=== PATIENT | female | born 1995 | race African-American/Black ===

== ENCOUNTER 2016-05-03 21:59 | Emergency (ER) | payer OTHER ==
[~2016-05-03] VITALS: Ht 165.1 cm; Wt 63.5 kg
[~2016-05-03 21:59] MED LIST: CEFU500T PO; CIPR500T4 PO; IBUP-1773 PO; METR500T PO; METR500T21 PO; NITR-65 PO; ONDA8TAB9 PO
--- NOTE | 2016-05-03 22:11 | ED Upper Extremity ---
General Chief Complaint: Laceration Stated Complaint: L HAND LAC Source: patient Exam Limitations: no limitations History of Present Illness Time seen by provider: 22:08 Initial Comments To ER with reports of a laceration to the palm of the left hand near the second MCP joint proximal to the joint itself. This occurred about 20 minutes ago at home while she was trying to lift open a window to get into her house that she had accidentally locked herself out. In doing so the glass broke and cut her hand. Tetanus is not up-to-date she states. She is right-hand dominant. Onset: just prior to arrival Severity: moderate Pain/Injury Location: left hand Allergies and Home Medications Allergies Coded Allergies: No Known Drug Allergies (Unverified , 10/16/15) Home Medications No Active Prescriptions or Reported Meds Constitutional: see HPI EENTM: see HPI Respiratory: no symptoms reported Cardiovascular: no symptoms reported Genitourinary: no symptoms reported Musculoskeletal: see HPI Skin: no symptoms reported Psychiatric/Neurological: No Symptoms Reported Past Nrmpupd-Uawaln-Kuyrsn Hx Patient Social History Alcohol Use: Denies Use Recreational Drug Use: No Smoking Status: Never a Smoker Recent Foreign Travel: No Contact w/Someone Who Travel: No Recent Hopitalizations: No Immunizations Up To Date Tetanus Booster (TDap): More than 5yrs PED Vaccines UTD: Yes Seasonal Allergies Seasonal Allergies: No Surgeries HX Surgeries: No Respiratory Hx Respiratory Disorders: No Cardiovascular Hx Cardiac Disorders: No Neurological Hx Neurological Disorders: No Reproductive System Hx Reproductive Disorders: Yes Sexually Transmitted Disease: No HIV/AIDS: No Female Reproductive Disorders: Ovarian Cyst 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 Physical Exam Vital Signs Vital Sign - Last 12Hours 05/03/16 22:06 Temp 96.5 Pulse 80 Resp 18 B/P (MAP) 118/94 Pulse Ox 99 O2 Delivery Room Air Capillary Refill : General Appearance: WD/WN, no apparent distress HEENT: PERRL/EOMI, normal ENT inspection Neck: non-tender, full range of motion Respiratory: no respiratory distress, no accessory muscle use Gastrointestinal: non tender, soft Hand: Left, laceration (there is a 0.5 cm laceration to the palm of the left hand with depth to the subcutaneous tissues. Given that this is over one of the flexion creases of the palm glue will not likely hold up so stitch will be placed.) Neurologic/Tendon: normal motor functions, normal tendon functions Neurologic/Psychiatric: alert, normal mood/affect, oriented x 3 Laceration Repair : Wound Location: Upper Extremities Wound Length (cm): 0.5 Wound's Depth, Shape: sub Q Wound Explored: clean Anesthesia: 1% Lidocaine Volume Anesthetic (ccs): 1 Suture: Prolene Suture Size: 5-0 Number of Sutures: 1 Layer Closure?: 1 Number Deep Layer Sutures: 0 Progress Area anesthetized with 2 percent lidocaine without epinephrine totaling 0.75 mL. Wound then scrubbed with chlorhexidine/saline solution then irrigated with 20 mL of the same. A simple a interrupted stitch size 5-0 Prolene was placed. Progress/Results/Core Measures Results/Orders My Orders Orders - RENNY QUINONES APRN Dipht,Pertuss(Acell),Tet Adult (Boostrix (05/03/16 22:15) Lidocaine 2% Injection 20 Ml (Xylocaine (05/03/16 22:15) Medications Given in ED Current Medications Medications Dose Ordered Sig/Juan Francisco Route Start Time Stop Time Status Last Admin Dose Admin Diphtheria/ Tetanus/Acell Pertussis 0.5 ml ONCE ONCE IM 05/03/16 22:15 05/03/16 22:16 DC 05/03/16 22:12 0.5 ML Vital Signs/I&O Vital Sign - Last 12Hours 05/03/16 22:06 Temp 96.5 Pulse 80 Resp 18 B/P (MAP) 118/94 Pulse Ox 99 O2 Delivery Room Air Departure Impression Impression: Primary Impression: Laceration of left hand Disposition: HOME, SELF-CARE Condition: Stable Departure-Patient Inst. Decision time for Depature: 22:10 Referrals: NO,LOCAL PHYSICIAN (PCP/Family) Primary Care Physician Patient Instructions: Laceration Repair With Stitches (DC) Add. Discharge Instructions: 1. Keep this clean dry and covered for 48 hours. After this you may let water run over it such as in the shower but do not soak this in water such as a dish sink, hot tub, bath tub or swimming pool until the stitches been removed 2. Return to the emergency room to have the stitches removed in 10 days 3. Return to ER before then for any sign of infection such as redness or swelling 4. Tylenol and Motrin for pain All discharge instructions reviewed with patient and/or family. Voiced understanding. Scripts No Active Prescriptions or Reported Meds RENNY QUINONES APRN May 03, 2016 22:11
[2016-05-03] MEDS ORDERED: LIDOCAINE 2% 20 ML (XYLOCAINE) VIAL INJ ONE (22:15)
[2016-05-03] MEDS ORDERED: TETANUS,DIPTH,PERTUSS P/F (BOOSTRIX) 0.5 ML VIAL IM ONE (22:15)
[2016-05-03 22:24] VITALS: BP 118/94
--- OUTSIDE RECORDS SUMMARY | 2016-05-07 05:21 | XMS REPORT | Referral Summary ---
Author Author [facility], [facility], Family Medicine Organization [facility], [facility] Family [facility] Address Unknown Phone Unavailable Care Team Providers Care Foot Press Operator Name Role Phone Dinorah Majano PCP Encounter [facility] [id number] Date(s): 03/12/15 - 03/12/15 [facility], [facility], Family Medicine [address] [place] [phone] [place] Discharge Diagnosis: Encounter for counseling regarding contraception Discharge Diagnosis: Left otitis media Discharge Disposition: 01-Home or Self Care Attending Physician: Dinorah Majano DO Admitting Physician: Dinorah Majano DO Vital Signs Most recent to 1 oldest [Reference Range]: Temperature Oral 37 degC [35.8-37.3 degC] (03/12/15 8:52 AM) Apical Heart Rate 76 bpm [60-100 bpm] (03/12/15 8:52 AM) Blood Pressure 134/80 mmHg [90-140/60-90 mmHg] (03/12/15 8:52 AM) SpO2 99 % (03/12/15 8:52 AM) Problem List No Known Problems Allergies, Adverse Reactions, Alerts No Known Allergies Medications No data available for this section Results No data available for this section Immunizations No data available for this section Procedures Procedure Date Related Diagnosis Body Site None Social History Social History Type Response Smoking Status Never smoker Assessment and Plan Extracted from: Title: OV: AOM, contraception Author: Dinorah Majano DO Date: 03/12/15 Assessment/Plan 1.Left otitis media probably viral. Pain control w/ OTC meds Flonase/Nasacort and Sudafed scheduled. Call next week if not improved at all. Ordered: Office Visit Level 3 Est 74769 Return to Clinic 2.Encounter for counseling regarding contraception Will schedule Yesy during her next period. If she has a new sexual partner before IUD placed, will need to recreen for GC /chlam. Ordered: Office Visit Level 3 Est 11217 Return to Clinic Referrals to Other Providers Referred by: Dinorah Majano DO
--- OUTSIDE RECORDS SUMMARY | 2016-05-07 05:21 | XMS REPORT ---
Author Author Deisi Thompson Organization [employer] Address Unknown Phone Unavailable Care Team Providers Care Account Associate Name Role Phone Deisi Thompson CP Unavailable Allergies No Known Allergies Problems Problem Type Condition ICD-9 Code Onset Dates Condition Status Problem Asthma, unspecified, unspecified status 493.90 Active Medications No Known Medications Vital Signs Date/Time: Oct 04, 2010 Weight 123 lbs Height 63.5 inches Blood Pressure Diastolic 75 mm Hg Blood Pressure Systolic 115 mm Hg Temperature 98.4 F Cardiac Monitoring Heart Rate 69 Beats per Minute Results No Known Results Summary Purpose [employer] Submission
--- OUTSIDE RECORDS SUMMARY | 2016-05-07 05:21 | XMS REPORT | Referral Summary ---
Author Author [facility], [facility], [facility] Medicine Organization [facility], [facility] Address Unknown Phone Unavailable Care Team Providers Care Security Incident Handler Name Role Phone Dinorah Majano PCP Encounter [facility] [id number] Date(s): 03/08/15 - 03/08/15 [facility], [facility], Family Medicine [address] [place] [phone] [place] Discharge Diagnosis: Vaginal discharge Discharge Diagnosis: Well woman exam with routine gynecological exam Discharge Diagnosis: Encounter for counseling regarding contraception Discharge Disposition: 01-Home or Self Care Attending Physician: Dinorah Majano DO Admitting Physician: Dinorah Majano DO Vital Signs Most recent to 1 oldest [Reference Range]: Apical Heart Rate 100 bpm [60-100 bpm] (03/08/15 1:03 PM) Blood Pressure 120/78 mmHg [90-140/60-90 mmHg] (03/08/15 1:03 PM) SpO2 97 % (03/08/15 1:03 PM) Problem List No Known Problems Allergies, Adverse Reactions, Alerts No Known Allergies Medications No Known Medications Results Microbiology Reports TEST: Affirm Vaginitis Panel STATUS: Auth (Verified) BODY SITE: SOURCE: Cervical COLLECTED DATE/TIME: 03/08/15 1:51 PM Affirm Vaginitis Panel Negative for Trichomonas vaginalis Negative for Skyla species Negative for Gardnerella vaginalis Immunizations No data available for this section Procedures Procedure Date Related Diagnosis Body Site None Social History Social History Type Response Smoking Status Never smoker Assessment and Plan Extracted from: Title: Ambulatory Patient Education Author: Dinorah Majano DO Date: 03/08/15 Family Medicine Contraception Choices control (contraception) is the use of any methods or devices to stop from happening. Below are some methods to help avoid . HORMONAL CONTROL A small tube put under the skin of the upper arm (implant). The tube can stay in place for 3 years. The implant must be taken out after 3 years. Shots given every 3 months. Pills taken every day. Patches that are changed once a week. A ring put into the vagina (vaginal ring). The ring is left in place for 3 weeks and removed for 1 week. Then, a new ring is put in the vagina. Emergency control pills taken after unprotected sex (intercourse). BARRIER CONTROL A thin covering worn on the penis (male condom) during sex. A soft, loose covering put into the vagina (female condom) before sex. A rubber bowl that sits over the cervix (diaphragm). The bowl must be made for you. The bowl is put into the vagina before sex. The bowl is left in place for 6 to 8 hours after sex. A small, soft cup that fits over the cervix (cervical cap). The cup must be made for you. The cup can be left in place for 48 hours after sex. A sponge that is put into the vagina before sex. A chemical that kills or stops sperm from getting into the cervix and uterus (spermicide). The chemical may be a cream, jelly, foam, or pill. INTRAUTERINE (IUD) CONTROL IUD control is a small, T-shaped piece of plastic. The plastic is put inside the uterus. There are 2 types of IUD: Copper IUD. The IUD is covered in copper wire. The copper makes a fluid that kills sperm. It can stay in place for 10 years. Hormone IUD. The hormone stops from happening. It can stay in place for 5 years. PERMANENT METHODS When the woman has her fallopian tubes sealed, tied, or blocked during surgery. This stops the egg from traveling to the uterus. The doctor places a small coil or insert into each fallopian tube. This causes scar tissue to form and blocks the fallopian tubes. When the male has the tubes that carry sperm tied off (vasectomy). NATURAL FAMILY PLANNING CONTROL Natural family planning means not having sex or using barrier control on the days the woman could become . Use a calendar to keep track of the length of each period and know the days she can get . Avoid sex during ovulation. Use a thermometer to measure body temperature. Also watch for symptoms of ovulation. Time sex to be after the woman has ovulated. Use condoms to help protect yourself against sexually transmitted infections ( STIs). Do this no matter what type of control you use. Talk to your doctor about which type of control is best for you. Document Released: 11/26/2009 Document Revised: 02/03/2014 Document Reviewed: [facility] Patient Information 2015 [employer]. This information is not intended to replace advice given to you by your health care provider. Make sure you discuss any questions you have with your health care provider. No follow up information was provided. Extracted from: Title: OV: YARD SPECIALIST, MACRINAE Author: Dinorah Majano DO Date: 03/08/15 Assessment/Plan 1.Well woman exam with routine gynecological exam Pap to start at age 21 STD screen today, see below Healthy diet and exercise recommended. Ordered: Initial Comp Preventive Med 18 to 39 years [place] [address] Return to Clinic 2.Vaginal discharge Affirm panel as well as GC/chalmydia testing today Recommended against continueddouching. 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 Ordered: Affirm Vaginitis Panel Chlamydia/GC Nucleic Acid Screen Initial Comp Preventive Med 18 to 39 years [place] [address] Return to Clinic 3.Encounter for counseling regarding contraception Discussed OCP vs injections vs implant vs IUD She doesn't think she'd be compliant w/pills Shots, implantwere her initial thoughts. I think IUD would be a good option for her Handout provided for her to readabout all her options. She will check w/ insurance. If she wishes to try Nexplanon, will have to referher to crystalizer. Depo/Yesy can be done here. Ordered: Initial Comp Preventive Med 18 to 39 years [place] [address] Return to Clinic Referrals to Other Providers Referred by: Dinorah Majano DO
--- OUTSIDE RECORDS SUMMARY | 2016-05-07 05:21 | XMS REPORT | Referral Summary ---
Author Author [facility], [facility], Family Medicine Organization [facility], [facility] Address Unknown Phone Unavailable Care Team Providers Care Linux Solaris Administrator Name Role Phone Dinorah Majano PCP Encounter [facility] [id number] Date(s): 04/29/15 - 04/29/15 [facility], [facility], Family Medicine [address] [place] [phone] [place] Discharge Disposition: 01-Home or Self Care Attending Physician: Dinorah Majano DO Admitting Physician: Dinorah Majano DO Vital Signs No data available for this section Problem List No Known Problems Allergies, Adverse Reactions, Alerts No Known Allergies Medications No data available for this section Results No data available for this section Immunizations No data available for this section Procedures Procedure Date Related Diagnosis Body Site None Social History Social History Type Response Smoking Status Never smoker Assessment and Plan No data available for this section
--- OUTSIDE RECORDS SUMMARY | 2016-05-07 05:21 | XMS REPORT | Referral Summary ---
Author Author [facility] Organization [facility] Address Unknown Phone Unavailable Care Team Providers Care Feed Miller Name Role Phone Dinorah Majano PCP Encounter [facility] Date(s): 01/12/16 - 01/12/16 [facility] [place] [id number] [place] [address] Discharge Disposition: 01-Home or Self Care Attending Physician: Catalina Chapman PA-C Admitting Physician: Catalina Chapman PA-C Referring Physician: Neris Carrizales MD Vital Signs Most recent to 1 oldest [Reference Range]: Blood Pressure 122/76 mmHg [90-140/60-90 mmHg] (01/12/16 3:35 PM) Problem List No Known Problems Allergies, Adverse Reactions, Alerts No Known Allergies Medications Macrobid 100 mg oral capsule 100 mg 1 caps, Oral, BID, X 10 days, # 20 caps, 0 Refill(s), Pharmacy: [facility] [id number], 1 caps Oral BID,x10 days Start Date: 01/12/16 Stop Date: 01/22/16 Status: Ordered Yesy 1 Each, IntraUteral, Once, placed 04/2015, 0 Refill(s) Start Date: 10/20/15 Status: Ordered Results No data available for this section Immunizations No data available for this section Procedures Procedure Date Related Diagnosis Body Site Insertion, non-biodegradable drug delivery 01/12/16 implant Removal of intrauterine device (IUD) 01/12/16 None Social History Social History Type Response Smoking Status Never smoker Assessment and Plan No data available for this section
--- OUTSIDE RECORDS SUMMARY | 2016-05-07 05:21 | XMS REPORT | Referral Summary ---
Author Author [facility], [facility], Family Medicine Organization [facility], [facility] Address Unknown Phone Unavailable Care Team Providers Care Mimeographer Name Role Phone Dinorah Majano PCP Encounter [facility] Date(s): 10/20/15 - 10/20/15 [facility], [facility], Family Medicine [address] [place] [phone] [place] [address] Discharge Diagnosis: LLQ abdominal pain Discharge Disposition: 01-Home or Self Care Attending Physician: Dinorah Majano DO Admitting Physician: Dinorah Majano DO Vital Signs Most recent to 1 oldest [Reference Range]: Peripheral Pulse 86 bpm Rate [60-100 bpm] (10/20/15 2:50 PM) Blood Pressure 116/76 mmHg [90-140/60-90 mmHg] (10/20/15 2:50 PM) Problem List No Known Problems Allergies, Adverse Reactions, Alerts No Known Allergies Medications Yesy 1 Each, IntraUteral, Once, placed 04/2015, 0 Refill(s) Start Date: 10/20/15 Status: Ordered Results No data available for this section Immunizations No data available for this section Procedures Procedure Date Related Diagnosis Body Site None Social History Social History Type Response Smoking Status Never smoker Assessment and Plan Extracted from: Title: OV: abd pain Author: Dinorah Majano DO Date: 10/20/15 Assessment/Plan 1.LLQ abdominal pain repeat sono today -- will consult OUTPATIENT SERVICES DIRECTOR if torsion present. continue NSAID otherwise. Ordered: Office Visit Level 3 Est 22030 Return to Clinic Orders: US Transvaginal/Pelvic Complete Referrals to Other Providers Referred by: Dinorah Majano DO
--- OUTSIDE RECORDS SUMMARY | 2016-05-07 05:22 | XMS REPORT | Referral Summary ---
Author Author [facility], [facility], Family Medicine Organization [facility], [facility] Family [facility] Address Unknown Phone Unavailable Care Team Providers Care Home Delivery Driver Name Role Phone Dinorah Majano PCP Encounter [facility] Date(s): 04/27/15 - 04/27/15 [facility], [facility], Family Medicine [address] [place] [phone]- [place] Discharge Diagnosis: Contraception Discharge Disposition: 01-Home or Self Care Attending Physician: Dinorah Majano DO Admitting Physician: Dinorah Majano DO Vital Signs Most recent to 1 oldest [Reference Range]: Apical Heart Rate 76 bpm [60-100 bpm] (04/27/15 8:46 AM) Blood Pressure 110/78 mmHg [90-140/60-90 mmHg] (04/27/15 8:46 AM) SpO2 99 % (04/27/15 8:46 AM) Problem List No Known Problems Allergies, Adverse Reactions, Alerts No Known Allergies Medications No Known Medications Results No data available for this section Immunizations No data available for this section Procedures Procedure Date Related Diagnosis Body Site Insertion of intrauterine device (IUD) 04/27/15 None Social History Social History Type Response Smoking Status Never smoker Assessment and Plan Extracted from: Title: OV: IUD insertion Author: Dinorah Majano DO Date: 04/27/15 Assessment/Plan 1.Contraception Yesy inserted as per above Ordered: levonorgestrel, 13.5 mg=1 Each, IntraUteral, Once, First Dose: 04/27/15 10:00: 00 CDT, Stop Date: 04/27/15 10:00:00 CDT IUD, Insert [id number] 2.Remove/insert IUD String check in 4wks. Discussed monthlyself checks. Ordered: IUD, Insert [id number]
--- OUTSIDE RECORDS SUMMARY | 2016-05-07 05:22 | XMS REPORT | Referral Summary ---
Author Author [facility], [facility], [facility] Medicine Organization [facility], [facility] Address Unknown Phone Unavailable Care Team Providers Care Poultry Field Service Technician Name Role Phone Dinorah Majano PCP Encounter [facility] Date(s): 01/12/16 - 01/12/16 [facility], [facility], [facility] Medicine [address] [place] [phone] [place] [address] Discharge Diagnosis: Acute UTI Discharge Diagnosis: Vaginal discharge Discharge Disposition: -Home or Self Care Attending Physician: Dinorah Majano DO Admitting Physician: Dinorah Majano DO Vital Signs Most recent to 1 oldest [Reference Range]: Peripheral Pulse 80 bpm Rate [60-100 bpm] (01/12/16 11:22 AM) Blood Pressure 142/92 mmHg [90-140/60-90 mmHg] *HI* (01/12/16 11:22 AM) SpO2 98 % (01/12/16 11:22 AM) Problem List No Known Problems Allergies, Adverse Reactions, Alerts No Known Allergies Medications Macrobid 100 mg oral capsule 100 mg 1 caps, Oral, BID, X 10 days, # 20 caps, 0 Refill(s), Pharmacy: [facility] [address], 1 caps Oral BID,x10 days Start Date: 01/12/16 Stop Date: 01/22/16 Status: Ordered Yesy 1 Each, IntraUteral, Once, placed 04/2015, 0 Refill(s) Start Date: 10/20/15 Status: Ordered Results Microbiology Reports TEST: Affirm Vaginitis Panel STATUS: Auth (Verified) BODY SITE: SOURCE: Cervical COLLECTED DATE/TIME: 01/12/16 11:46 AM Affirm Vaginitis Panel POSITIVE FOR GARDNERELLA VAGINALIS Negative for Trichomonas vaginalis Negative for Skyla species Immunizations No data available for this section Procedures Procedure Date Related Diagnosis Body Site None Social History Social History Type Response Smoking Status Never smoker Assessment and Plan Extracted from: Title: OV: UTI, vag dc Author: Dinorah Majano DO Date: 01/12/16 Assessment/Plan 1.Acute UTI Macrobid 100mg BID x 10 days culture pending Ordered: Office Visit Level 3 Est 62733 2.Vaginal discharge affirm and gc/chlamy swabs today treat as indicated Ordered: Office Visit Level 3 Est 27108 Dysuria see #1 Ordered: Urine Culture Urinary frequency see #1 Ordered: Urine Culture
--- OUTSIDE RECORDS SUMMARY | 2016-05-07 05:22 | XMS REPORT | Referral Summary ---
Author Author [facility] Organization [facility] Address Unknown Phone Unavailable Care Team Providers Care Photo Editor Name Role Phone Dinorah Majano PCP Encounter [facility] Date(s): 10/20/15 - 10/20/15 [facility] [address] [place] [address] [phone] Discharge Disposition: 01-Home or Self Care Attending [...]
--- OUTSIDE RECORDS SUMMARY | 2016-05-07 05:22 | XMS REPORT | Continuity of Care Document ---
Author Author [facility] Organization [facility] Address Unknown Phone Unavailable Allergies Active Description Code Type Severity Reaction Onset Reported/Identified Relationship to Patient Clinical Status Yes No Known Allergies No Known Allergies Drug Allergy Unknown N/A 03/25/2014 Yes No Known Drug Allergies [id number] Drug Allergy Unknown N/ A 10/16/2015 Medications Problems Date Dx Coded Attending Type Code Diagnosis Diagnosed By 04/14/2015 RENNY QUINONES APRN Ot R11.0 NAUSEA 04/16/2015 RENNY QUINONES APRN Ot R11.0 05/01/2015 RENNY QUINONES APRN Ot R11.0 05/01/2015 SHARRON ABDUL MD, Ot N39.0 URINARY TRACT INFECTION, SITE NOT SPECIF 05/01/2015 SHARRON ABDUL MD Ot N76.0 ACUTE VAGINITIS 05/01/2015 SHARRON ABDUL MD Ot Z97.5 PRESENCE OF (INTRAUTERINE) CONTRACEPTIVE 05/03/2015 SHARRON ABDUL MD Ot N39.0 05/03/2015 SHARRON ABDUL MD Ot N76.0 05/03/2015 SHARRON ABDUL MD Ot Z97.5 05/11/2015 RENNY QUINONES APRN Ot R11.0 05/19/2015 RENNY QUIONNES APRN Ot R11.0 06/03/2015 MOSES DO, MADELIN E Ot R30.0 DYSURIA 06/16/2015 MOSES DO, MADELIN E Ot R30.0 DYSURIA 06/22/2015 SHARRON ABDUL MD, Ot S61.214A LACERATION W/O FB OF R RNG FNGR W/O BERENICE 06/22/2015 SHARRON ABDUL MD, Ot W25.XXXA CONTACT WITH [place], INITIAL ENCOUN 06/22/2015 SHARRON ABDUL MD Ot Y92.010 KITCHEN OF SINGLE-FAMILY (PRIVATE) HOUSE 06/22/2015 SHARRON ABDUL MD, Ot Y93.G1 ACTIVITY, FOOD PREPARATION AND CLEAN UP 06/22/2015 SHARRON ABDUL MD, Ot Y99.8 OTHER EXTERNAL CAUSE STATUS 06/23/2015 SHARRON ABDUL MD, Ot S61.214A LACERATION W/O FB OF R RNG FNGR W/O BERENICE 06/23/2015 SHARRON ABDUL MD, Ot W25.XXXA CONTACT WITH [place], INITIAL ENCOUN 06/23/2015 SHARRON ABDUL MD, Ot Y92.010 KITCHEN OF SINGLE-FAMILY (PRIVATE) HOUSE 06/23/2015 SHARRON ABDUL MD, Ot Y93.G1 ACTIVITY, FOOD PREPARATION AND CLEAN UP 06/23/2015 SHARRON ABDUL MD, Ot Y99.8 OTHER EXTERNAL CAUSE STATUS 08/09/2015 MOSES DO, MADELIN E Ot R30.0 DYSURIA 08/15/2015 MOSES DO, MADELIN E Ot R30.0 DYSURIA 10/16/2015 MOSES DO, MADELIN E Ot R30.0 DYSURIA 10/16/2015 MOSES DO, MADELIN E Ot R30.0 DYSURIA 10/17/2015 CLIFFORD DELEON MD Ot B95.2 ENTEROCOCCUS THE CAUSE OF DISEASES CL 10/17/2015 CLIFFORD DELEON MD Ot B96.20 UNSP ESCHERICHIA COLI THE CAUSE OF DI 10/17/2015 CLIFFORD DELEON MD Ot N39.0 URINARY TRACT INFECTION, SITE NOT SPECIF 10/17/2015 CLIFFORD DELEON MD Ot N83.51 TORSION OF OVARY AND OVARIAN PEDICLE 10/21/2015 MOSES DO, MADELIN E Ot R30.0 DYSURIA 11/17/2015 LUCIANO MOODY MD Ot N76.0 ACUTE VAGINITIS 11/17/2015 LUCIANO MOODY MD Ot R30.0 DYSURIA 02/12/2016 LUCIANO MOODY MD Ot N76.0 ACUTE VAGINITIS 02/12/2016 LUCIANO MOODY MD Ot R30.0 DYSURIA Procedures Results Test Result Range URINALYSIS, ROUTINE - 03/25/14 16:46 UA LEUKOCYTE ESTERASE DIPSTICK NEGATIVE NEGATIVE UA NITRITE DIPSTICK POSITIVE NEGATIVE UA PROTEIN DIPSTICK 1+ NEGATIVE UA GLUCOSE DIPSTICK NEGATIVE NEGATIVE UA KETONE DIPSTICK 2+ NEGATIVE UA UROBILINOGEN DIPSTICK NORMAL NORMAL UA BILIRUBIN DIPSTICK NEGATIVE NEGATIVE UA BLOOD DIPSTICK TRACE NEGATIVE UA SPECIFIC GRAVITY >=1.030 1.015-1.025 UR PH 6.0 5.0-7.0 UA MICROSCOPIC - 03/25/14 16:46 UA BACTERIA 5+ NEGATIVE UA EPITHELIAL CELLS 3+ epi/hpf 0 - 1+ UA MUCUS 2+ NEG TO 1+ UA RBC 0-3 rbc/hpf 0 - 3 UA VOLUME FOR EXAM 12.0 mL (12mL STD) UA WBC 0-1 wbc/hpf 0 - 5 UR TEST - 03/25/14 16:47 UR TEST NEGATIVE NEGATIVE CBC W/DIFF - 03/25/14 16:50 COMMENT REVIEWED GRANULOCYTE # 9.6 k/cumm 2.0-9.0 GRANULOCYTE % 93 % 50-75 LYMPHOCYTE # 0.3 k/cumm 1.0-4.0 LYMPHOCYTE % 3 % 20-30 MEAN CELL HGB 24.4 pg 27.0-33.0 MEAN CELL HGB CONCENTRATION 31.5 g/dL 32.0-37.0 MEAN CELL VOLUME 77.3 fl 80.0-100.0 MONOCYTE # 0.4 k/cumm 0.1-1.0 MONOCYTE % 4 % 4-6 RED BLOOD CELL 5.42 m/cumm 4.00-6.00 RED CELL DISTRIBUTION WIDTH 15.0 % 11.0- 15.6 WHITE BLOOD CELL 10.3 k/cumm 5.0-10.0 HEMOGLOBIN 13.2 gm/dL 12.0-16.0 HEMATOCRIT 41.9 % 37.0-47.0 PLATELET COUNT 276 k/cumm 150-400 METABOLIC PANEL, COMPREHN - 03/25/14 16:50 POTASSIUM 4.3 mmol/L 3.5-5.3 EST GFR (MDRD) > 60 mL/min > 59 ANION GAP 10 mmol/L 5-15 EST CrCl (CG) > 60 mL/min > 59 GLUCOSE 99 mg/dL 70-99 CALCIUM 9.3 mg/dL 8.5-10.1 BLOOD UREA NITROGEN 12 mg/dL 7-20 CREATININE 1.0 mg/dL 0.5-1.0 SODIUM 138 mmol/L 135-148 CHLORIDE 102 mmol/L 98-110 AST/SGOT 16 Units/L 10-37 ALT/SGPT 18 Units/L < 66 CARBON DIOXIDE 26 mmol/L 21-32 TOTAL PROTEIN 9.1 gm/dL 6.4-8.2 ALBUMIN 4.3 gm/dL 3.4-5.0 BILI TOTAL 1.1 mg/dL 0.0-1.0 ALKALINE PHOSPHATASE TOTAL 73 IU/L 45- 117 LIPASE - 03/25/14 16:50 LIPASE 81 Units/L 73-393 WET MOUNT - 04/24/14 04:20 Microbiology GRAM STAIN - CHLAMYDIA DNA BY PCR - 04/24/14 04:20 Microbiology URINALYSIS, ROUTINE - 10/10/14 23:10 UA LEUKOCYTE ESTERASE DIPSTICK TRACE NEGATIVE UA NITRITE DIPSTICK POSITIVE NEGATIVE UA PROTEIN DIPSTICK NEGATIVE NEGATIVE UA GLUCOSE DIPSTICK NEGATIVE NEGATIVE UA KETONE DIPSTICK NEGATIVE NEGATIVE UA UROBILINOGEN DIPSTICK 2+ NORMAL UA BILIRUBIN DIPSTICK NEGATIVE NEGATIVE UA BLOOD DIPSTICK NEGATIVE NEGATIVE UA SPECIFIC GRAVITY 1.025 1.015-1.025 UR PH 7.0 5.0-7.0 Microbiology UA MICROSCOPIC - 10/10/14 23:10 UA BACTERIA 3+ NEGATIVE UA EPITHELIAL CELLS 2+ epi/hpf 0 - 1+ UA RBC 0-3 rbc/hpf 0 - 3 UA VOLUME FOR EXAM 12.0 mL (12mL STD) UA WBC 5-10 wbc/hpf 0 - 5 UR TEST - 10/10/14 23:11 UR TEST NEGATIVE NEGATIVE Microbiology URINALYSIS, ROUTINE - 12/05/14 13:38 UA LEUKOCYTE ESTERASE DIPSTICK NEGATIVE NEGATIVE UA NITRITE DIPSTICK NEGATIVE NEGATIVE UA PROTEIN DIPSTICK TRACE NEGATIVE UA GLUCOSE DIPSTICK NEGATIVE NEGATIVE UA KETONE DIPSTICK NEGATIVE NEGATIVE UA UROBILINOGEN DIPSTICK NORMAL NORMAL UA BILIRUBIN DIPSTICK NEGATIVE NEGATIVE UA BLOOD DIPSTICK NEGATIVE NEGATIVE UA SPECIFIC GRAVITY 1.020 1.015-1.025 UR PH 7.0 5.0-7.0 UA MICROSCOPIC - 12/05/14 13:38 UA BACTERIA 4+ NEGATIVE UA EPITHELIAL CELLS 1+ epi/hpf 0 - 1+ UA MUCUS 1+ NEG TO 1+ UA RBC 0 rbc/hpf 0 - 3 UA VOLUME FOR EXAM 12.0 mL (12mL STD) UA WBC 0-1 wbc/hpf 0 - 5 UR TEST - 10/24/15 13:42 UR TEST NEGATIVE NEGATIVE Complete urinalysis with reflex to culture - 10/16/15 18:16 Urine color determination YELLOW NRG Urine clarity determination VERY CLOUDY NRG Urine pH measurement by test strip 6 5- 9 Specific gravity of urine by test strip 1.025 1.016-1.022 Urine protein assay by test strip, semi-quantitative 3+ NEGATIVE Urine glucose detection by automated test strip NEGATIVE NEGATIVE Erythrocytes detection in urine sediment by light microscopy 2+ NEGATIVE Urine ketones detection by automated test strip 1+ NEGATIVE Urine nitrite detection by test strip POSITIVE NEGATIVE Urine total bilirubin detection by test strip NEGATIVE NEGATIVE Urine urobilinogen measurement by automated test strip (mass/volume) NORMAL NORMAL Urine leukocyte esterase detection by dipstick 3+ NEGATIVE Automated urine sediment erythrocyte count by microscopy (number/high power field) [HPF] NRG Automated urine sediment leukocyte count by microscopy (number/high power field ) TNTC NRG Bacteria detection in urine sediment by light microscopy LARGE NRG Squamous epithelial cells detection in urine sediment by light microscopy 10-25 NRG Crystals detection in urine sediment by light microscopy NONE NRG Casts detection in urine sediment by light microscopy NONE NRG Mucus detection in urine sediment by light microscopy NEGATIVE NRG Complete urinalysis with reflex to culture YES NRG Bacterial urine culture - 10/16/15 18:16 Bacterial urine culture [id number] NRG COLONY COUNT >100,000/ML NRG FTX;REPORTABLE SENSITIVITY REPORTED BY [facility] NR FREE TEXT ENTRY 2 10/25/15 12:40 NR FREE TEXT ENTRY 3 ESBL IDENTIFIED NR Bacterial susceptibility panel - 10/16/15 18:16 Gentamicin susceptibility test by minimum inhibitory concentration <= NRG Trimethoprim/sulfamethoxazole susceptibility test by minimum inhibitoryconcentration >= NRG Ampicillin susceptibility test by minimum inhibitory concentration >= NRG Tobramycin susceptibility test by minimum inhibitory concentration 4 NRG Cefazolin susceptibility test by minimum inhibitory concentration >= NRG Ceftriaxone susceptibility test by minimum inhibitory concentration >= NRG Ampicillin/sulbactam susceptibility test by minimum inhibitory concentration >= NRG Ciprofloxacin susceptibility test by minimum inhibitory concentration 2 NRG Meropenem susceptibility test by minimum inhibitory concentration <= NRG Nitrofurantoin susceptibility test by minimum inhibitory concentration <= NRG Aztreonam susceptibility test by minimum inhibitory concentration 32 NRG Extended spectrum beta lactamase (ESBL) producing bacteria susceptibility test by minimum inhibitory concentration + NRG Cefepime susceptibility test by minimum inhibitory concentration R NRG Amikacin susceptibility test by minimum inhibitory concentration S NRG Complete blood count (CBC) with automated white blood cell (WBC) differential - 10/16/15 19:50 Blood leukocytes automated count (number/volume) 7.5 10*3/ uL 4.3-11.0 Blood erythrocytes automated count (number/volume) 4.86 10*6 /uL 4.35-5.85 Venous blood hemoglobin measurement (mass/volume) 13.3 g/dL 11.5-16.0 Blood hematocrit (volume fraction) 39 % 35-52 Automated erythrocyte mean corpuscular volume 80 [foz_us] 80-99 Automated erythrocyte mean corpuscular hemoglobin (mass per erythrocyte) 27 pg 25-34 Automated erythrocyte mean corpuscular hemoglobin concentration measurement ( mass/volume) 34 g/dL 32-36 Automated erythrocyte distribution width ratio 13.8 % 10.0-14.5 Automated blood platelet count (count/volume) 242 10*3/uL 130-400 Automated blood platelet mean volume measurement 11.0 [foz_ us] 7.4-10.4 Automated blood neutrophils/100 leukocytes 65 % 42-75 Automated blood lymphocytes/100 leukocytes 28 % 12-44 Blood monocytes/100 leukocytes 6 % 0-12 Automated blood eosinophils/100 leukocytes 1 % 0-10 Automated blood basophils/100 leukocytes 0 % 0-10 Blood neutrophils automated count (number/volume) 4.9 10*3 1.8-7.8 Blood lymphocytes automated count (number/volume) 2.1 10*3 1.0-4.0 Blood monocytes automated count (number/volume) 0.5 10*3 0.0-1.0 Automated eosinophil count 0.1 10*3/uL 0.0-0.3 Automated blood basophil count (count/volume) 0.0 10*3/uL 0.0-0.1 Whole blood basic metabolic panel - 10/16/15 19:50 Serum or plasma sodium measurement (moles/volume) 137 mmol/ L 135-145 Serum or plasma potassium measurement (moles/volume) 3.8 mmol/L 3.6-5.0 Serum or plasma chloride measurement (moles/volume) 106 mmol /L 98-107 Carbon dioxide 18 mmol/L 21-32 Serum or plasma anion gap determination (moles/volume) 13 mmol/L 5-14 Serum or plasma urea nitrogen measurement (mass/volume) 9 mg /dL 7-18 Serum or plasma creatinine measurement (mass/volume) 0.79 mg /dL 0.60-1.30 Serum or plasma urea nitrogen/creatinine mass ratio 11 NRG Serum or plasma creatinine measurement with calculation of estimated glomerular filtration rate > NRG Serum or plasma glucose measurement (mass/volume) 83 mg/dL 70-105 Serum or plasma calcium measurement (mass/volume) 9.4 mg/dL 8.5-10.1 Serum or plasma choriogonadotropin ( test) detection - 10/16/15 19:50 Serum or plasma choriogonadotropin ( test) detection NEGATIVE NEGATIVE Complete urinalysis with reflex to culture - 11/17/15 07:30 Urine color determination YELLOW NRG Urine clarity determination CLEAR NRG Urine pH measurement by test strip 5 5- 9 Specific gravity of urine by test strip 1.025 1.016-1.022 Urine protein assay by test strip, semi-quantitative 1+ NEGATIVE Urine glucose detection by automated test strip NEGATIVE NEGATIVE Erythrocytes detection in urine sediment by light microscopy NEGATIVE NEGATIVE Urine ketones detection by automated test strip NEGATIVE NEGATIVE Urine nitrite detection by test strip NEGATIVE NEGATIVE Urine total bilirubin detection by test strip NEGATIVE NEGATIVE Urine urobilinogen measurement by automated test strip (mass/volume) NORMAL NORMAL Urine leukocyte esterase detection by dipstick NEGATIVE NEGATIVE Automated urine sediment erythrocyte count by microscopy (number/high power field) NONE NRG Automated urine sediment leukocyte count by microscopy (number/high power field ) NONE NRG Bacteria detection in urine sediment by light microscopy NEGATIVE NRG Squamous epithelial cells detection in urine sediment by light microscopy 2-5 NRG Crystals detection in urine sediment by light microscopy NONE NRG Casts detection in urine sediment by light microscopy NONE NRG Mucus detection in urine sediment by light microscopy MODERATE NRG Complete urinalysis with reflex to culture NO NRG Bacteria identification in genital specimen by aerobe culture - 11/17/15 10:05 FREE TEXT EXTERNAL SEE COMMENTS NRG QUANTITY OF GROWTH Scant Growth NRG Bacteria identification in genital specimen by aerobe culture [id number] NRG Microscopic examination by ANDREW preparation - 11/17/15 10:05 Microscopic examination by ANDREW preparation TNP NRG Neisseria gonorrhoeae DNA detection by probe and signal amplification method - 11/17/15 10:05 Gonorrhea amp DNA-urine Negative Negative Chlamydia trachomatis DNA detection by probe and signal amplification method - 11/17/15 10:05 Chlamydia trachomatis DNA detection by probe and target amplification method Negative Negative Microscopic examination by wet preparation - 11/17/15 10:05 WET PREP RESULTS NO YEAST OBSERVED, NO TRICHOMONAS OBSERVED NRG Encounters ACCT No. Visit Date/Time Discharge Status Pt. Type Provider Facility Loc./Unit Complaint [id number] 01/31/2015 23:15:00 2014 23:52:00 DIS [id number] 01/31/2015 03:48:00 2014 05:16:00 DIS Emergency [facility] [id number] 12/05/2014 12:35:00 2014 16:43:00 DIS Emergency Dennise BHAGAT [facility].STVEEN [id number] 10/10/2014 22:54:00 2014 00:47:00 DIS Emergency Inés LANDRUM, Azam Gonzales [facility].STEVEN [id number] 03/25/2014 13:37:00 2014 18:16:00 DIS Emergency Morales LANDRUM, Cecilio Richmond [facility] [id number] 04/24/2014 02:07:00 Document Registration
== END 2016-05-03 22:24 | disposition home or self-care (01) ==
LOC: EDUNIT# 21:59 → ER 22:00
DX: S61.412A Laceration without foreign body of left hand, initial encounter (principal); Z23 Encounter for immunization; W25.XXXA Contact with sharp glass, initial encounter; Y92.009 Unspecified place in unspecified non-institutional (private) residence as the place of occurrence of the external cause; Y99.8 Other external cause status
CPT/HCPCS: 12001; 90471; 90715

== ENCOUNTER → 2017-09-13 | Outpatient (CLI) | payer OTHER ==
--- NOTE | 2017-09-13 14:01 | Diagnostic Imaging Report ---
PROCEDURE: US PELVIC (NON OB) TECHNIQUE: Multiple real-time grayscale images were obtained over the pelvis in various projections transabdominally. INDICATION: Pelvic pain. The uterus measures 7.2 x 4.1 x 3.9 cm. Endometrium is 6 mm in thickness. No myometrial mass is identified. The right ovary measures 3.3 x 2.5 x 2.4 cm and the left ovary measures 3.6 x 1.6 x 2.4 cm. There is a 16 mm follicle involving the left ovary. No other adnexal mass or free fluid is seen. IMPRESSION: 16 mm left ovarian cyst. Study is otherwise unremarkable. Dictated by: Dictated on workstation # [id number]
== END ==
LOC: RAD 12:38
PROVIDERS: ATTEND Nurse Practitioner Primary Care
DX: N83.202 Unspecified ovarian cyst, left side (principal)
CPT/HCPCS: 76856